=== PATIENT | female | born 1950 | race Caucasian/White ===

== ENCOUNTER 2019-08-09 17:13 | Emergency (ER) | payer MEDICARE, OTHER ==
[2019-08-09] MEDS ORDERED: BUPIVACAINE 0.5% PF 30 ML VIAL SUBQ ONE (17:34)
--- NOTE | 2019-08-09 17:37 | ED Physician Documentation ---
PD HPI LOWER EXT INJURY - Stated complaint Stated Complaint: R KNEE LOCKED - Chief complaint Chief Complaint: Ext Problem - History obtained from History obtained from: Patient - History of Present Illness PD HPI LOW EXT INJURY LOCATION: Right (About 20 years ago she had an ACL/meniscus injury which was repaired. 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 - Present Medications Home Medications: Ambulatory Orders Medication Instructions Recorded Confirmed Hydrocodone/Acetaminophen 1 - 2 each PO Q6H PRN #14 tablet 08/09/19 [Hydrocodon-Acetaminophen 5-325] Losartan [Cozaar] 25 mg PO DAILY 08/09/19 08/09/19 - Allergies Allergies/Adverse Reactions: Allergies Allergy/AdvReac Type Severity Reaction Status Date / Time Sulfa (Sulfonamide Allergy Severe Hives Verified 06/15/13 11:13 Antibiotics) shellfish derived Allergy Intermediate Hives Verified 06/15/13 11:13 iodine Allergy Rash Verified 08/09/19 17:20 latex Allergy Rash Verified 08/09/19 17:20 povidone-iodine Allergy Rash Verified 08/09/19 17:20 [From Betadine] soap [From Betadine] Allergy Rash Verified 08/09/19 17:20 - Social History Does the pt smoke?: No Smoking Status: Never smoker Does the pt drink ETOH?: No Does the pt have substance abuse?: No - Immunizations Immunizations are current?: Yes PD ED PE NORMAL - Vitals Vital signs reviewed: Yes - General General: Alert and oriented X 3, No acute distress - Extremities Extremities: Other (The right knee is nontender but its held in about 20 degrees of flexion. She can flex it more than that but she cannot extend it.) - Neuro Neuro: Alert and oriented X 3, Normal speech Results - Vitals Vitals: Vital Signs - 24 hr 08/09/19 08/09/19 17:17 18:19 Temperature 36.8 C 36.8 C Heart Rate 87 86 Respiratory 20 18 Rate Blood Pressure 160/81 H 161/80 H O2 Saturation 98 97 Oxygen O2 Source Room air - Rads (name of study) R knee XR Radiology: EMP read contemporaneously (NAD) Procedures - General procedure General procedure: After verbal informed consent the left knee was prepped with ChloraPrep and sterilely draped. It was infiltrated into the joint using a medial approach with 5 mL of 0.5% Marcaine. After that I was able to put gentle traction on the lower extremity and it unlocked and went into full extension. Departure - Departure Disposition: 01 Home, Self Care Clinical Impression: Internal derangement of right knee Condition: Good Record reviewed to determine appropriate education?: Yes Instructions: ED Meniscal Injury Knee Poss Follow-Up: [facility] [Provider Group] - Within 1 week Prescriptions: Hydrocodone/Acetaminophen [Hydrocodon-Acetaminophen 5-325] 1 - 2 each PO Q6H PRN #14 tablet PRN Reason: pain Comments: Keep the splint on while up and around, you can take it off briefly for showering but I would not bend the leg when you are doing that. Return for new worsening symptoms. Follow-up with the orthopedic surgeon. Do not drink or drive while taking narcotic pain medication. Note that many narcotic pain relievers also contain Tylenol/acetaminophen. Please ensure that your total dose of acetaminophen from all sources does not exceed 3 g (3000 mg) per day. You may get constipated while on this medication. Take a stool softener such as Colace twice a day while you are on it. Also add an [id number] laxative such as senna or MiraLAX on any day that you do not have a bowel movement. If you received a narcotic pain medication or sedative while in the emergency department, do not drive for the next 24 hours. Discharge Date/Time: 08/09/19 18:50
[2019-08-09] MEDS ORDERED: BUPIVACAINE 0.5% PF 10 ML VIAL SUBQ STA (17:40)
[2019-08-09] MEDS ORDERED: HYDROcod/ACETAM 5/325 MG TABLET PO STA (17:52)
[2019-08-09] MEDS ORDERED: HYDROcod/ACET 5/325 Prepack 4 PO STA (17:52)
[2019-08-09 18:20] VITALS: BP 161/80
--- NOTE | 2019-08-09 18:39 | XRAY Report ---
Reason: knee pain, locked Procedure Date: 08/09/2019 Accession Number: [id number] / [id number] Procedure: XR - Knee 4 View RT CPT Code: Final Report FULL RESULT: EXAM: RIGHT KNEE RADIOGRAPHY EXAM DATE: 08/09/2019 06:15 PM. CLINICAL HISTORY: Knee pain, locked. COMPARISON: None. TECHNIQUE: 3 views. FINDINGS: Bones: Normal. No fractures or bone lesions. Joints: Normal. No effusion. No subluxations. Soft Tissues: Normal. No soft tissue swelling. IMPRESSION: No acute displaced fracture or malalignment. RADIA
== END 2019-08-09 18:50 | disposition home or self-care (01) ==
LOC: ED 17:13
DX: M23.91 Unspecified internal derangement of right knee (principal); K75.9 Inflammatory liver disease, unspecified
CPT/HCPCS: 73564; 99283; A9270

== ENCOUNTER 2021-06-27 17:15 | Emergency (ER) | payer MEDICARE, OTHER ==
--- NOTE | 2021-06-27 18:36 | XRAY Report ---
PROCEDURE: Ankle 3 View RT INDICATIONS: Trauma TECHNIQUE: 3 views of the ankle were acquired. COMPARISON: None FINDINGS: Bones: No fractures or dislocations. Ankle mortise is normally aligned. No suspicious bony lesions . Soft tissues: Lateral malleolar edema. Achilles tendon appears normal. IMPRESSION: Lateral malleolar edema. No visualized acute fracture or dislocation. However, occult in jury cannot be excluded. Recommend short interval imaging follow-up in 7-10 days as clinically indica lita for additional evaluation. Reviewed by: Sharifa Mondragon MD on 06/27/2021 6:34 PM PDT Approved by: Sharifa Mondragon MD on 06/27/2021 6:34 PM PDT Station ID: [id number]
--- NOTE | 2021-06-27 19:46 | ED Physician Documentation ---
PD HPI LOWER EXT INJURY - Stated complaint Stated Complaint: GLF - Chief complaint Chief Complaint: Trauma Ext - History obtained from History obtained from: Patient - History of Present Illness PD HPI LOW EXT INJURY LOCATION: Right, Ankle Type of injury: Fall, Twist Where injury occurred: Street Timing - onset: How many hours ago (2) Pain level max: 8 Pain level now: 6 Improved by: Rest, Ice Worsened by: Moving, Palpating Associated symptoms: Swelling. No: Weakness, Numbness, Tingling Contributing factors: No: Anticoagulated - Additional information Additional information: Patient accidentally fell down the last 2 stairs and twisted her right ankle. Worse with movement, better with rest. No head, neck, back pain. No other in juries Review of Systems Constitutional: denies: Fever, Chills GI: denies: Vomiting, Diarrhea Skin: denies: Rash Musculoskeletal: denies: Neck pain, Back pain Neurologic: denies: Headache PD PAST MEDICAL HISTORY - Past Medical History Cardiovascular: Hypertension GI: Hepatitis : Chronic bladder infection - Past Surgical History Past Surgical History: Yes General: Cholecystectomy Ortho: ACL reconstruction /LAN ENGINEER: Hysterectomy HEENT: Cataracts - Present Medications Home Medications: Ambulatory Orders Medication Instructions Recorded Confirmed Hydrocodone/Acetaminophen 1 - 2 each PO Q6H PRN #14 tablet 08/09/19 [Hydrocodon-Acetaminophen 5-325] Losartan [Cozaar] 25 mg PO DAILY 08/09/19 08/09/19 - Allergies Allergies/Adverse Reactions: Allergies Allergy/AdvReac Type Severity Reaction Status Date / Time Sulfa (Sulfonamide Allergy Severe Hives Verified 06/15/13 11:13 Antibiotics) shellfish derived Allergy Intermediate Hives Verified 06/15/13 11:13 iodine Allergy Rash Verified 08/09/19 17:20 latex Allergy Rash Verified 08/09/19 17:20 povidone-iodine Allergy Rash Verified 08/09/19 17:20 [From Betadine] soap [From Betadine] Allergy Rash Verified 08/09/19 17:20 - Social History Does the pt smoke?: No Smoking Status: Never smoker Does the pt drink ETOH?: No Does the pt have substance abuse?: No - Immunizations Immunizations are current?: Yes PD ED PE NORMAL - Vitals Vital signs reviewed: Yes - General General: Alert and oriented X 3, No acute distress - HEENT HEENT: Moist mucous membranes - Neck Neck: Supple, no meningeal sign - Derm Derm: Warm and dry - Extremities Extremities: Other (R ankle - Mild tender to palpation at the right lateral malleolus. Neurovascularly intact. Mild swelling. Otherwise normal exam of the foot and ankle. No tenderness at the base of the fifth metatarsal.) - Neuro Neuro: Alert and oriented X 3 Results - Vitals Vitals: Oxygen O2 Source Room air - Rads (name of study) Right ankle x-ray Radiology: Final report received, EMP read contemporaneously, See rad report (No acute abnormality) PD MEDICAL DECISION MAKING - ED course Complexity details: reviewed results, re-evaluated patient, considered diffe rential, d/w patient ED course: No acute findings on xray Placed in a gel splint for comfort. Repeat x-ray in 1 week if still having pain. Patient counseled regarding signs and symptoms for which I believe and urgent re-evaluation would be necessary. Patient with good understanding of and agreement to plan and is comfortable going home at this time This document was made in part using voice recognition software. While efforts are made to proofread this document, sound alike and grammatical errors may occur. Departure - Departure Disposition: 01 Home, Self Care Clinical Impression: Right ankle sprain Qualifiers: Encounter type: initial encounter Involved ligament of ankle: unspecified ligament Qualified Code(s): S93.401A - Sprain of unspecified ligament of right ankle, initial encounter Condition: Good Instructions: ED Sprain Ankle Follow-Up: Coby Montano MD [Primary Care Provider] - Within 1 week Comments: Follow-up with your doctor in 1 week for repeat evaluation. Your x-ray does not show any acute abnormalities today. If you are still having pain in 1 week, they should repeat your x-rays. You may bear weight as tolerated. You can use Motrin or Tylenol as needed for pain. Discharge Date/Time: 06/27/21 20:10
[2021-06-27 20:10] VITALS: BP 167/79
== END 2021-06-27 20:10 | disposition home or self-care (01) ==
LOC: ED 17:15
DX: S93.401A Sprain of unspecified ligament of right ankle, initial encounter (principal); W10.9XXA Fall (on) (from) unspecified stairs and steps, initial encounter; Y92.410 Unspecified street and highway as the place of occurrence of the external cause
CPT/HCPCS: 99282; 99283